=== PATIENT | female | born 2000 ===

== ENCOUNTER 2024-05-26 06:26 | Day surgery (SDC) | payer OTHER, SELFPAY ==
[2024-05-25 12:34] LABS: Hematocrit 39.3 % (37.0-47.0); Hemoglobin 13.8 g/dL (12.0-16.0); Mean Corp Hgb Conc. 35.1 g/dL (33.0-37.0); Mean Corpuscular Volume 91.2 fL (81.0-99.0); Mean Platelet Volume 10.1 fL (7.4-10.4); Platelet Count 222 10^3/uL (130-400); Red Blood Cell Count 4.31 10^6/uL (4.20-5.40); Red Cell Dist. Width 12.1 % (11.5-14.5); White Blood Cell Count 4.4 10^3/uL (4.8-10.8)
[2024-05-25 13:02] LABS: ALT (SGPT) 16 U/L (0-35); AST (SGOT) 23 U/L (14-36); Albumin 4.7 g/dl (3.5-5.0); Alkaline Phosphatase 56 U/L (38-126); Blood Urea Nitrogen 16 mg/dl (7-17); Calcium 10.1 mg/dl (8.4-10.2); Carbon Dioxide 29 mmol/L (22-30); Chloride 103 mmol/L (98-107); Glucose 94 mg/dl (70-99); Potassium 4.3 mmol/L (3.5-5.1); Sodium 138 mmol/L (135-145); Total Bilirubin 1.3 mg/dl (0.2-1.3); Total Protein 6.8 g/dl (6.3-8.2); eGFR > 60.00
[2024-05-25 17:13] LABS: LDH 130 U/L (120-246)
[2024-05-25 17:35] LABS: Beta HCG Quantitative < 2.39 mIU/ml
[2024-05-25 17:49] LABS: CEA 0.82 ng/ml
[2024-05-25 20:12] LABS: CA 125 28.3 U/mL (0-35)
[2024-05-25 20:16] LABS: AFP Male/Tumor Marker 1.71 ng/ml
[2024-05-26] VITALS (10 sets, daily range): BP systolic 108–124; BP diastolic 51–70; BMI 23.8
[2024-05-26] MEDS: NORMOSOL-R 1000 IV (13:36)
[2024-05-26] MEDS: NEURONTIN 300 MG PO (13:40)
[2024-05-26] MEDS: TYLENOL 1000 MG PO (13:40)
[2024-05-26] MEDS: HEPARIN 5000 UNITS SC (13:40)
[2024-05-26] MEDS: CELEBREX 200 MG PO (13:41)
--- NOTE | 2024-05-26 18:16 | OR.RPT ---
Operative Report
Operative Report
Date of surgery: May 26, 2024
Preoperative diagnosis left complex ovarian mass
Postop diagnosis: Same, pending final pathology
Procedure:
Robotic assisted laparoscopic exploration of the abdomen, left partial oophorectomy and ovarian cystectomy, pelvic washings [id number]
Tap block
Surgeon: Tod Eckert MD
Assist: CHRISTY Bell, JUAN Resendiz
Anesthesia: General Endotracheal intubation
Fluids: 1200 cc
Estimated blood loss 50 cc
Urine output: 450 cc
Complications: None
Procedure in detail: Patient was brought to the operating room and placed in supine position, general anesthesia was administered she was intubated without any difficulty OG tube was placed. The patient was placed in lithotomy position using
yellowfin stirrups. Her arms were wrapped and protected across all joints and placed along the patient's sides. The patient was prepped on the abdomen perineum and vagina and upper thighs and she was draped. Timeout procedure was carried out, she
received Ancef 2 g, had received DVT prophylaxis with heparin 5000 units. Pritchett catheter was inserted in the bladder under sterile conditions. Anterior lip of the cervix was grasped with single-tooth tenaculum and the uterine cavity was accessed
with a uterine sound that sounded to 7 cm the cervical canal was dilated and a manager french uterine manipulator with 3 cm LIBERTY ring was placed around the cervix. Attention was turned abdominally. Veress needle was inserted just below left costal
margin and CO2 gas was used to insufflate the abdomen up to pressure of 15 mmHg. Next a 8 mm robotic port was inserted approximately 25 cm cephalad to the symphysis pubis and mid epigastric level above the level of the apex of the mass. 8 mm
robotic ports were then inserted in right upper quadrant and left upper quadrant as well as right and left lateral abdomen.
We performed a tap block under direct visualization approximately 1 fingerbreadth below the costal margin on the lateral aspects of the abdomen injecting a total of 30 mL 0.5% ropivacaine admixed with 30 mL sterile saline.
Once this was completed we inspected the upper abdomen and noted liver spleen stomach and omentum to be unremarkable. There is some filmy omental adhesions in the right upper quadrant just below the liver margin. Appendix appears to be normal
with small adhesion at the tip to the adjacent peritoneum. Both diaphragms are smooth and unremarkable. A large 20+ centimeter mass was arising from the left ovary which appeared to be multiloculated but overall had smooth capsule. We were able
to inspect the uterus and anterior cul-de-sac which were normal the right tube and ovary appeared to be normal and the right ovary had physiologic cysts.
The patient was placed in 28 degree Trendelenburg. The robotic system was docked. Using scissors I went ahead and made an incision on the capsule of the left ovary. I was able to separate the cyst from the capsule of the ovary and the lower
portion in the dependent portion of the ovarian mass and once we were outside of the lower half of the cyst I mated incision transecting the ovarian capsule from the lower portion of the ovary. Good hemostasis was obtained. 2 V-Loc suture was used
to reapproximate the edges of the ovary and reconstruct the ovary. The left fallopian tube was completely normal. At this point the midepigastric port was upsized to a 12 mm port. The left ovarian cyst was brought into the pelvis and placed in a
large 15 mm endoscopic bag and the bag was sealed. At this point the robotic system was undocked, the specimen bag was brought up to the skin after removal of the 12 mm port the incision was extended for a total of 2.5 cm at the level of skin and
fascia we brought up and opened the bag and removed the cyst by decompressing various cystic component of it and eventually removing the entire specimen. This was handed over to pathology as portion of the left ovary and left ovarian cyst. The
pelvis had already been examined and good hemostasis was present. We used a 0 Vicryl suture on a UR 6 needle to close the epigastric incision at the fascial level. All incisions were closed after removal of the robotic ports at the level of skin
with 4-0 Monocryl suture in a subcuticular fashion. Uterine manipulator was removed, Pritchett catheter was removed. The patient returned back to supine position, awakened and extubated and returned back to recovery room stable awake and extubated
condition. Counts of laps instruments and needle was correct x 2. I was present and scrubbed for entire procedure as dictated above.
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 I will await the final
pathology in order to determine future interventions for this patient. Based on my clinical examination of the abdomen there was no other abnormalities present and the goal was preservation of both ovaries and normal anatomy in this patient.
Disposition: To PACU, awake extubated
[2024-05-26] MEDS: DILAUDID 0.25 MG IV (18:22)
[2024-05-26] MEDS: ZOFRAN 4 MG IV (18:22)
[2024-05-26] MEDS: TORADOL 15 MG IV (18:37)
[2024-05-28 08:46] LABS: CA 19-9 24 U/mL (<=35)
== END 2024-05-26 19:48 | disposition home or self-care (01) ==
LOC: SDS 06:26
PROVIDERS: ATTENDING PHYSICIAN Obstetrics & Gynecology Gynecologic Oncology; FAMILY PHYSICIAN Nurse Practitioner
DX: N83.8 Other noninflammatory disorders of ovary, fallopian tube and broad ligament (principal); D27.1 Benign neoplasm of left ovary
CPT/HCPCS: 58662; 88305; 36415; 80053; 82105; 82378; 83615; 84702; 85027; 86301; 86304; 86850; 86900; 86901; 87070; 88112